=== PATIENT | female | born 1940 | race Caucasian/White ===

== ENCOUNTER 2022-04-27 11:58 | Outpatient (CLI) | payer MEDICARE, OTHER, SELFPAY ==
--- NOTE | ~2022-04-27 | US_ITS ---
EXAMINATION: US venous doppler [facility] DATE: 04/27/2022 12:46 INDICATION: Lower limb edema TECHNIQUE: Parry scale images without and with compression and Doppler images of the bilateral lower e xtremity veins were obtained. COMPARISON: None FINDINGS: The right common femoral vein, profunda femoral vein, femoral vein, popliteal vein, peroneal trunk, p osterior tibial veins, and greater saphenous vein are patent. The left common femoral vein, profunda femoral vein, femoral vein, popliteal vein, peroneal trunk, po sterior tibial veins, and greater saphenous vein are patent. There is partial thrombosis of the great er saphenous vein, a superficial vein. IMPRESSION: 1. No evidence of deep venous thrombosis. 2. Partial superficial venous thrombosis of the left greater saphenous vein. Reviewed, dictated and finalized at location L.
== END 2022-04-27 11:59 | disposition home or self-care (01) ==
PROVIDERS: Visit Provider Internal Medicine Cardiovascular Disease
DX: R60.0 Localized edema (principal); I82.812 Embolism and thrombosis of superficial veins of left lower extremity
CPT/HCPCS: 93970

== ENCOUNTER 2022-07-20 12:22 | Outpatient (CLI) | payer MEDICARE, OTHER, SELFPAY ==
--- NOTE | ~2022-07-20 | US_ITS ---
EXAMINATION: US venous doppler [facility] DATE: 07/20/2022 13:26 INDICATION: Lower limb pain TECHNIQUE: Parry scale images without and with compression and Doppler images of the bilateral lower e xtremity veins were obtained. COMPARISON: 04/27/2022 FINDINGS: The right common femoral vein, profunda femoral vein, femoral vein, popliteal vein, peroneal trunk, p osterior tibial veins, and greater saphenous vein are patent. The left common femoral vein, profunda femoral vein, femoral vein, popliteal vein, peroneal trunk, po sterior tibial veins, and greater saphenous vein are patent. IMPRESSION: 1. Patent bilateral lower extremity veins. No evidence of deep venous thrombosis. Reviewed, dictated and finalized at location B. IMPRESSION: 1. Patent bilateral lower extremity veins. No evidence of deep venous thrombosi s.
== END 2022-07-20 12:23 | disposition home or self-care (01) ==
LOC: ANHIMG 12:35
PROVIDERS: Visit Provider Internal Medicine Cardiovascular Disease
DX: I82.409 Acute embolism and thrombosis of unspecified deep veins of unspecified lower extremity (principal); M79.605 Pain in left leg
CPT/HCPCS: 93970